=== PATIENT | male | born 1960 | race Caucasian/White ===

== ENCOUNTER 2019-09-02 07:08 | Day surgery (SDC) | payer MEDICARE, MEDICAID ==
[~2019-09-02] VITALS: Ht 177.8 cm; Wt 93.0 kg
[~2019-09-02 07:08] MED LIST: APIX5TAB PO; ASCO500C6 PO; ASPI-1393 PO; ATOR40TA70 PO; CHOL500010 PO; CLOP75TA33 PO; CYCLOPENTOLATE HCL 1% OPHTH DROPS 2ML LEFTEYE NR; DULO30CA2 PO; EZET10TA13 PO; FERR-43 PO; GABA-290 PO; HUMALOG INSULIN SUBCUT; IBUP-2030 PO; INSNOV SUBCUT; INSU100I24 SQ; INSU3INS6 SQ; NIFE30TA94 PO; PANT40TA4 PO; PHENYLEPHRINE HCL 10% OPHTH DROPS 5ML LEFTEYE NR; PREG200C PO; RAMI5CAP65 PO; TAMS-11 PO; TROPICAMIDE 1% OPHTH DROPS 15ML LEFTEYE NR; ZINC SULFATE PO
[2019-09-02] MEDS ORDERED: BALANCED SALT IRRIG SOLN COMB1 500ML OP ONE (07:45)
[2019-09-02] MEDS ORDERED: LACTATED RINGERS 1,000 ML IV SCH (08:18)
[2019-09-02] MEDS ORDERED: PROPOFOL 200MG/20ML VIAL IV ONE (09:52)
[2019-09-02] MEDS ORDERED: KETOROLAC 30MG/ML VIAL IV NR (11:00)
[2019-09-02 11:03] VITALS: BP 149/74
== END 2019-09-02 12:00 | disposition home or self-care (01) ==
LOC: OR 07:08
PROVIDERS: ATTEND Ophthalmology
DX: E11.36 Type 2 diabetes mellitus with diabetic cataract (principal); E11.3513 Type 2 diabetes mellitus with proliferative diabetic retinopathy with macular edema, bilateral; E11.22 Type 2 diabetes mellitus with diabetic chronic kidney disease; E11.42 Type 2 diabetes mellitus with diabetic polyneuropathy; H25.89 Other age-related cataract; E78.00 Pure hypercholesterolemia, unspecified; I12.9 Hypertensive chronic kidney disease with stage 1 through stage 4 chronic kidney disease, or unspecified chronic kidney disease; N18.3 Chronic kidney disease, stage 3 (moderate); Z79.82 Long term (current) use of aspirin; Z79.899 Other long term (current) drug therapy; Z79.4 Long term (current) use of insulin; Z98.890 Other specified postprocedural states; Z88.8 Allergy status to other drugs, medicaments and biological substances
CPT/HCPCS: 66982; 67005; 82962; J1885; J2704; J3490; V2632

== ENCOUNTER 2020-08-03 05:26 | Day surgery (SDC) | payer MEDICARE, MEDICAID ==
[~2020-08-03] VITALS: Ht 177.8 cm; Wt 90.7 kg
[~2020-08-03 05:26] MED LIST changes: -ASPI-1393 PO; +ASPI-1497 PO; -CYCLOPENTOLATE HCL 1% OPHTH DROPS 2ML LEFTEYE NR; -INSU3INS6 SQ; -PHENYLEPHRINE HCL 10% OPHTH DROPS 5ML LEFTEYE NR; -TROPICAMIDE 1% OPHTH DROPS 15ML LEFTEYE NR
[2020-08-03] MEDS ORDERED: SODIUM CHLORIDE 0.9% 1,000 ML IV SCH (06:30)
[2020-08-03] MEDS ORDERED: MITOMYCIN 0.2 MG KIT OP ONE (07:00)
[2020-08-03] MEDS ORDERED: ACET500C47 PO (07:06)
[2020-08-03] MEDS ORDERED: DOCU250C69 PO (07:06)
[2020-08-03] MEDS ORDERED: INSU100I28 SQ ×2 (07:06)
[2020-08-03] MEDS ORDERED: METH25TA5 PO (07:06)
[2020-08-03] MEDS ORDERED: HYDR-4009 PO (07:06)
[2020-08-03] MEDS ORDERED: FISH PO (07:06)
[2020-08-03] MEDS ORDERED: SEMA0.25 SQ (07:14)
[2020-08-03] MEDS ORDERED: TAMS-11 PO (07:14)
[2020-08-03] MEDS ORDERED: RAMI5CAP65 PO (07:14)
[2020-08-03] MEDS ORDERED: PROPOFOL 200MG/20ML VIAL IV ONE (07:39)
[2020-08-03] MEDS ORDERED: MIDAZOLAM HCL 2 MG/2 ML VIAL ONE (07:39)
[2020-08-03] MEDS ORDERED: FENTANYL CITRATE/PF 50MCG/ML 2ML VIAL ONE (07:39)
[2020-08-03] MEDS ORDERED: CIPROFLOXACIN 0.3% OPHTH SOLN 2.5ML ONE (08:00)
[2020-08-03] MEDS ORDERED: TROPICAMIDE 1% OPHTH DROPS 15ML ONE (08:00)
[2020-08-03] MEDS ORDERED: ACETYLCHOLINE CHLORIDE INTRAOCULAR SOLUTION 1:100 ELECTROLYTE DILUENT IO ONE (08:00)
[2020-08-03] MEDS ORDERED: NEO/POLYMYX B SULF/DEXAMETH OPHTH OINT 3.5GM ONE (08:00)
[2020-08-03] MEDS ORDERED: PHENYLEPHRINE HCL 10% OPHTH DROPS 5ML ONE (08:00)
[2020-08-03] MEDS ORDERED: PREDNISOLONE ACETATE 1% OPHTH DROPS 5ML ONE (08:00)
[2020-08-03] MEDS ORDERED: LIDOCAINE HCL/PF 2% 20 MG/ML 10ML VIAL ONE ×2 (08:00)
[2020-08-03] MEDS ORDERED: BALANCED SALT IRRIG SOLN 15ML ONE (08:00)
[2020-08-03] MEDS ORDERED: TETRACAINE 0.5% OPHTH DROPS 4ML ONE (08:00)
[2020-08-03] MEDS ORDERED: BUPIVACAINE HCL/PF 0.75% (7.5MG/ML) 10ML ONE (08:00)
[2020-08-03] MEDS ORDERED: CYCLOPENTOLATE HCL 1% OPHTH DROPS 2ML ONE (08:00)
[2020-08-03] MEDS ORDERED: LIDOCAINE HCL 2%/EPINEPHRINE 1:100,000 20 ML VIAL INFIL ONE (08:00)
[2020-08-03] MEDS ORDERED: GLYCOPYRROLATE 0.2 MG/ML 2ML VIAL ONE (08:12)
[2020-08-03] MEDS ORDERED: EPHEDRINE SULFATE 50MG/ML VIAL ONE (08:22)
[2020-08-03] MEDS ORDERED: PHENYLEPHRINE HCL 10 MG/ML 1ML (IV VIAL) IV ONE (08:22)
[2020-08-03] MEDS ORDERED: KETOROLAC 30MG/ML VIAL ONE (08:35)
[2020-08-03] MEDS ORDERED: ONDANSETRON HCL 4MG/2ML INJ ONE (08:35)
== END 2020-08-03 10:30 | disposition home or self-care (01) ==
LOC: OR 05:26
PROVIDERS: ATTEND Ophthalmology
DX: E11.39 Type 2 diabetes mellitus with other diabetic ophthalmic complication (principal); H40.9 Unspecified glaucoma; H21.542 Posterior synechiae (iris), left eye; I10 Essential (primary) hypertension; E78.00 Pure hypercholesterolemia, unspecified; Z79.4 Long term (current) use of insulin; Z79.899 Other long term (current) drug therapy; Z98.890 Other specified postprocedural states; Z88.8 Allergy status to other drugs, medicaments and biological substances
CPT/HCPCS: 66170; 82962; J1885; J2250; J2370; J2405; J2704; J3010; J3490; J3301